=== PATIENT | female | born 1985 | race Caucasian/White ===

== ENCOUNTER 2016-11-16 15:44 | Emergency (ER) | payer OTHER ==
[~2016-11-16] VITALS: Ht 160 cm; Wt 111.6 kg
[2016-11-16 16:28] LABS: BASO # 0.1 x10^3/uL (0.0-0.2); BASO % 1 % (0-3); EOS % 3 % (0-3); HEMATOCRIT 38.9 % (36.0-47.0); HEMOGLOBIN 13.2 g/dL (12.0-15.5); LYMPH # 2.1 x10^3/uL (1.0-4.8); LYMPH % 18 % (24-48); MEAN CORPUSCULAR HEMOGLOBIN 29 pg (25-35); MEAN CORPUSCULAR HGB CONC 34 g/dL (31-37); MEAN CORPUSCULAR VOLUME 86 fL (79-100); MONO % 6 % (0-9); NEUT % 72 % (31-73); PLATELET COUNT 285 x10^3/uL (140-400); RED BLOOD COUNT 4.52 x10^6/uL (3.50-5.40); RED CELL DISTRIBUTION WIDTH 12.3 % (11.5-14.5); WHITE BLOOD COUNT 11.5 x10^3/uL (4.0-11.0)
[2016-11-16] MEDS ORDERED: ONDANSETRON PF 4 MG/2 ML VIAL. IV ONE (16:30)
[2016-11-16] MEDS ORDERED: IV NORMAL SALINE 1000ML BAG 1,000 ML IV ONE ×2 (16:30→19:00)
[2016-11-16 16:39] LABS: POTASSIUM ISTAT 3.3 mmol/L (3.5-5.0)
[2016-11-16 16:40] LABS: CALCIUM 9.3 mg/dL (8.5-10.1); CREATININE 0.9 mg/dL (0.6-1.0); GFR 72.1; POTASSIUM 3.3 mmol/L (3.5-5.1)
[2016-11-16] MEDS: HYDROmorphone 2 MG/ML VIAL IV PRN ×2 (16:43→20:51)
[2016-11-16 16:46] LABS: ALBUMIN 3.5 g/dL (3.4-5.0); ALBUMIN/GLOBULIN RATIO 0.8 (1.0-1.7); TOTAL BILIRUBIN 0.5 mg/dL (0.2-1.0)
[2016-11-16] MEDS ORDERED: CONTRAST GIVEN MC PRN (17:00)
[2016-11-16 17:07] LABS: BILIRUBIN,URINE SMALL (NEG); GLUCOSE,URINE NEGATIVE (NEG); NITRITE,URINE NEGATIVE (NEG); PROTEIN,URINE 30 mg/dL (NEG-TRACE); UROBILINOGEN,URINE 0.2 mg/dL (0.2 mg/dL)
[2016-11-16 17:16] LABS: BACTERIA,URINE MANY /HPF (0-FEW); RBC,URINE OCC /HPF (0-2); SQUAMOUS EPITHELIAL CELL,UR MANY /LPF
[2016-11-16] MEDS ORDERED: IOHEXOL 300 MG/ML 75 ML VIAL IV ONE (17:30)
[2016-11-16] MEDS ORDERED: IOHEXOL 240 MG/ML 50ML VIAL. PO ONE (17:30)
--- NOTE | 2016-11-16 17:42 | PHYS DOC ---
Past Medical History Past Medical History: Hypertension Past Surgical History: , Tonsillectomy, Other Additional Past Surgical Histo: GASTRIC BYPASS,D&C,ADENOIDS Alcohol Use: Occasionally Drug Use: None Adult General Chief Complaint Chief Complaint: ABDOMINAL PAIN HPI HPI 31-year-old female presenting to the emergency department after having a gastric bypass surgery less than a week ago. This was performed at [facility]. She reports epigastric abdominal pain that is sharp moderate intermittent and without alleviating factors. She denies vomiting but does have nausea. She denies fevers chills chest pain or shortness of breath. Review of systems is negative for rashes confusion lethargy cyanosis or diarrhea constipation blood in stools. All other review of systems is negative unless otherwise noted in history of present illness. ED course: 31-year-old female presenting to the emergency department with epigastric abdominal pain on postoperative day 4 of a gastric bypass surgery performed at another facility. Vital signs show the patient to be afebrile with a normal heart rate. Otherwise mild chronic hypertension present. Physical examination shows incisions to be clean dry and intact. Laparoscopic incisions present. Abdomen is soft and minimally tender in the epigastrium without rebound tenderness or guarding. Otherwise unremarkable examination. Blood work sent along with CT the abdomen pelvis with IV and oral contrast. I discussed the case with surgeon on-call at [facility] Dr. hassan. I also discussed the case with Dr. Guerrier our surgeon on-call who recommended transfer. The patient was in transferred to [facility] for treatment of acute pancreatitis after bariatric surgery. Review of Systems Review of Systems SEE ABOVE. Current Medications Current Medications Current Medications Medications (Trade) Dose Ordered Sig/Pa Start Time Stop Time Status Last Admin Dose Admin Enoxaparin Sodium (Lovenox 40mg Syringe) 40 mg Q12H 11/17/16 09:00 11/17/16 09:00 DC Famotidine (Pepcid) 20 mg DAILY 11/17/16 09:00 11/17/16 09:00 DC Fentanyl Citrate (Fentanyl 2ml Vial) 50 mcg PRN Q2HR PRN 11/16/16 19:30 11/16/16 22:11 DC Hydromorphone HCl (Dilaudid) 0.5 mg PRN Q4HRS PRN 11/16/16 19:30 11/16/16 22:11 DC Info (Do NOT chart on this entry -- for MONITORING) 1 each PRN DAILY PRN 11/16/16 17:00 11/16/16 22:11 DC Iohexol (Omnipaque 240 Mg/ml) 50 ml 1X ONCE 11/16/16 17:30 11/16/16 17:31 DC 11/16/16 17:30 50 ML Iohexol (Omnipaque 300 Mg/ml) 75 ml 1X ONCE 11/16/16 17:30 11/16/16 17:31 DC 11/16/16 18:01 75 ML Ondansetron HCl (Zofran) 4 mg PRN Q6HRS PRN 11/16/16 19:30 11/16/16 22:11 DC Oxycodone HCl (Roxicodone) 5 mg PRN QID PRN 11/16/16 19:30 11/16/16 22:11 DC Potassium Chloride (Klor-Con) 20 meq 1X ONCE 11/16/16 19:00 11/16/16 19:01 DC 11/16/16 19:03 20 MEQ Prochlorperazine Edisylate (Compazine) 10 mg PRN Q6HRS PRN 11/16/16 19:30 11/16/16 22:11 DC Sodium Chloride 1,000 ml @ 100 mls/hr Q10H 11/16/16 20:00 11/16/16 22:11 DC Allergies Allergies Allergies Coded Allergies Type Severity Reaction Last Updated Verified metaxalone Allergy Intermediate rash 11/16/16 Yes meperidine Allergy Mild VOMIT 11/16/16 Yes Physical Exam Physical Exam SEE ABOVE Constitutional: Well developed, well nourished, no acute distress, non-toxic appearance. [] HENT: Normocephalic, atraumatic, bilateral external ears normal, oropharynx moist, no oral exudates, nose normal. [] Eyes: PERRLA, EOMI, conjunctiva normal, no discharge. [] Neck: Normal range of motion, no tenderness, supple, no stridor. [] Cardiovascular:Heart rate regular rhythm, no murmur [] Lungs & Thorax: Bilateral breath sounds clear to auscultation [] Abdomen: See above Skin: Warm, dry, no erythema, no rash. [] Back: No tenderness, no CVA tenderness. [] Extremities: No tenderness, no cyanosis, no clubbing, ROM intact, no edema. [] Neurologic: Alert and oriented X 3, normal motor function, normal sensory function, no focal deficits noted. [] Psychologic: Affect normal, judgement normal, mood normal. [] Current Patient Data Vital Signs Vital Signs Date Time Temp Pulse Resp B/P (MAP) Pulse Ox O2 Delivery O2 Flow Rate FiO2 11/16/16 21:39 66 23 175/92 (119) 96 Room Air 11/16/16 16:01 98.4 98.4 Lab Values Laboratory Tests Test 11/16/16 16:01 11/16/16 16:19 11/16/16 16:26 11/16/16 16:47 POC Urine HCG, Qualitative Hcg negative (Negative) White Blood Count 11.5 x10^3/uL (4.0-11.0) H Red Blood Count 4.52 x10^6/uL (3.50-5.40) Hemoglobin 13.2 g/dL (12.0-15.5) Hematocrit 38.9 % (36.0-47.0) Mean Corpuscular Volume 86 fL (79-100) Mean Corpuscular Hemoglobin 29 pg (25-35) Mean Corpuscular Hemoglobin Concent 34 g/dL (31-37) Red Cell Distribution Width 12.3 % (11.5-14.5) Platelet Count 285 x10^3/uL (140-400) Neutrophils (%) (Auto) 72 % (31-73) Lymphocytes (%) (Auto) 18 % (24-48) L Monocytes (%) (Auto) 6 % (0-9) Eosinophils (%) (Auto) 3 % (0-3) Basophils (%) (Auto) 1 % (0-3) Neutrophils # (Auto) 8.3 x10^3uL (1.8-7.7) H Lymphocytes # (Auto) 2.1 x10^3/uL (1.0-4.8) Monocytes # (Auto) 0.6 x10^3/uL (0.0-1.1) Eosinophils # (Auto) 0.4 x10^3/uL (0.0-0.7) Basophils # (Auto) 0.1 x10^3/uL (0.0-0.2) Sodium Level 139 mmol/L (136-145) Potassium Level 3.3 mmol/L (3.5-5.1) L Chloride Level 100 mmol/L (98-107) Carbon Dioxide Level 22 mmol/L (21-32) Anion Gap 17 (6-14) H 23 mmol/L (6-14) H Blood Urea Nitrogen 16 mg/dL (7-20) Creatinine 0.9 mg/dL (0.6-1.0) Estimated GFR (Cockcroft-Gault) 72.1 BUN/Creatinine Ratio 18 (6-20) Glucose Level 83 mg/dL (70-99) 81 mg/dL (70-99) Calcium Level 9.3 mg/dL (8.5-10.1) Total Bilirubin 0.5 mg/dL (0.2-1.0) Aspartate Amino Transferase (AST) 17 U/L (15-37) Alanine Aminotransferase (ALT) 17 U/L (14-59) Alkaline Phosphatase 70 U/L (46-116) Total Protein 8.0 g/dL (6.4-8.2) Albumin 3.5 g/dL (3.4-5.0) Albumin/Globulin Ratio 0.8 (1.0-1.7) L Lipase 681 U/L (73-393) H POC Hemoglobin 13.9 g/dL (12-15) POC Hematocrit 41 % (36-40) H POC Sodium 140 mmol/L (135-145) POC Potassium 3.3 mmol/L (3.5-5.0) L POC Chloride 102 mmol/L (98-110) POC Total CO2 19 mmol/L (23-32) L POC Blood Urea Nitrogen 15 mg/dL (8-26) POC Creatinine 0.7 mg/dL (0.5-1.4) POC Ionized Calcium (Edie) 1.08 mmol/L (1.13-1.32) L Urine Collection Type Unknown Urine Color Yellow Urine Clarity Clear Urine pH 6.0 Urine Specific [place] >=1.030 Urine Protein 30 mg/dL (NEG-TRACE) Urine Glucose (UA) Negative mg/dL (NEG) Urine Ketones (Stick) >=80 mg/dL (NEG) Urine Blood Large (NEG) Urine Nitrite Negative (NEG) Urine Bilirubin Small (NEG) Urine Urobilinogen Dipstick 0.2 mg/dL (0.2 mg/dL) Urine Leukocyte Esterase Small (NEG) Urine RBC Occ /HPF (0-2) Urine WBC 1-4 /HPF (0-4) Urine Squamous Epithelial Cells Many /LPF Urine Bacteria Many /HPF (0-FEW) Urine Mucus Marked /LPF Laboratory Tests 11/16/16 16:19 Laboratory Tests 11/16/16 16:19 11/16/16 16:26 EKG EKG [] Radiology/Procedures Radiology/Procedures [] Course & Med Decision Making Course & Med Decision Making Pertinent Labs and Imaging studies reviewed. (See chart for details) [] Dragon Disclaimer Dragon Disclaimer This electronic medical record was generated, in whole or in part, using a voice recognition dictation system. Departure Departure Impression: Primary Impression: Epigastric abdominal pain Additional Impression: Pancreatitis Disposition: ADMITTED INPATIENT Condition: STABLE Referrals: REHAN ZARAGOZA MD Patient Instructions: Abdominal Pain (Nonspecific), Bariatric Surgery, Care After, Diet - Following Bariatric Surgery Additional Instructions: Thank you for allowing us to participate in your care today. Followup with your primary care physician in 3 days if your symptoms do not improve. Call your Primary Doctor tomorrow and inform them of your visit today. If you do not have a primary care provider you can ask for a list of our primary care providers. Return to the emergency department you have any new or concerning findings. This should be evaluated by the primary care physician and any necessary consulting services for continued management within a few days after discharge. Return to emergency room if you have any new or concerning symptoms including but not limited to fever, chills, nausea, vomiting, intractable pain, any new rashes, chest pain, shortness of air, uncontrolled bleeding, difficulty breathing, and/or vision loss. You may have been prescribed medication that can change in your level of thinking and ability to operate machinery. These medications include hydrocodone and Ativan. Also, Benadryl has been known to do this as well. Be sure to check with your pharmacist and ask if the medications you've prescribed can affect your level of consciousness. I recommend not operating heavy machinery or driving while on medication such as these. Problem Qualifiers ARIAN BIRMINGHAM MD Nov 16, 2016 17:42
--- NOTE | 2016-11-16 18:33 | RAD ---
CT study of the abdomen and pelvis with contrast Clinical indications: Epigastric pain. Status post gastric bypass surgery 4 days ago. TECHNIQUE: After IV infusion of 75 mL of Omnipaque 300, helical CT scanning of the abdomen and pelvis was performed. GI contrast was administered per mouth. PQRS compliance Statement One or more of the following individualized dose reduction techniques were utilized for this study: 1. Automated exposure control 2. Adjustment of the mA and/or kV according to patient size 3. Use of iterative reconstruction technique COMPARISON: None available. FINDINGS: The liver and spleen and gallbladder and pancreas are normal. No extra hepatic biliary ductal dilatation is seen. No adrenal mass is evident. Both kidneys are normal without hydronephrosis or hydroureter. Urinary bladder is not abnormally distended. No focal aneurysmal dilatation of the abdominal aorta is seen. No enlarged abdominal or pelvic lymphadenopathy is seen. No uterine mass or fibroid is seen. No dominant ovarian cyst or mass is evident. Midtransverse colon spasm is seen. No obstructive bowel pattern is evident. Contrast is seen all the way to the terminal ileum. The terminal ileum is normal. The appendix is normal. No free fluid is evident. Postoperative changes of the anterior abdominal wall on left side is seen with edema. Postoperative changes related to partitioned stomach and gastric bypass is evident. No abnormal distention of the stomach is seen. Minimal amount of free intraperitoneal air is seen from the recent surgery a few days ago. No lung base consolidation is evident on the right side. Mild mild postoperative atelectasis of the left lung base is seen. Minimal pleural effusion is seen on this side. Grade 1 anterolisthesis of L5-S1 is seen secondary to bilateral spondylolysis of L5. No osteolytic process is seen. IMPRESSION: Postoperative changes with edema of the anterior abdominal wall on the left side. No soft tissue abscess is seen within the anterior abdominal wall. No intraperitoneal soft tissue abscess or free fluid is seen. A tiny amount of postoperative free air is seen. No gastric obstruction or bowel obstruction is evident. GI contrast is seen all the way to the terminal ileum. Mild postoperative left lung base atelectasis. Minimal postoperative left-sided pleural effusion. Grade 1 anterolisthesis of L5-S1 secondary to bilateral spondylolysis of L5. Electronically signed by: Johann Sweeney MD (11/16/2016 6:30 PM) [facility]
[2016-11-16] MEDS ORDERED: POTASSIUM CHLORIDE 20 MEQ TABLET.ER. PO ONE (19:00)
[2016-11-16] MEDS ORDERED: PROCHLORPERAZINE 10 MG/2 ML VIAL. IV PRN (19:30)
[2016-11-16] MEDS ORDERED: oxyCODONE IR 5 MG TABLET PO PRN (19:30)
[2016-11-16] MEDS ORDERED: ONDANSETRON PF 4 MG/2 ML VIAL. IV PRN (19:30)
[2016-11-16] MEDS ORDERED: fentaNYL PF VIAL 100 MCG/2 ML VIAL IV PRN (19:30)
[2016-11-16] MEDS ORDERED: HYDROmorphone 2 MG/ML VIAL IV PRN (19:30)
--- NOTE | 2016-11-16 19:30 | PDOC1 ---
History and Physical Date of Admission Date of Admission DATE: 11/16/16 TIME: 19:23 Identification/Chief Complaint Chief Complaint abd pain Problems: Source Source: Caregiver, Chart review, Patient History of Present Illness History of Present Illness 31 y.o morbidly obese female who is 4 days out from having gastric bypass by Dr. Arteaga at [facility], coems in to us (she lives at [facility]) for abd pain, mostly LLQ area. Lipase 680s, CT abd neg except for post opc hanges, Urine is clean except for signs of dehydration. She has lost 14 lbs simce sx, expected to lose 120 lbs more, She is on liquid diet at home, with goals of pureed diet this Friday. ER did call bariatric sx at [facility], Dr. Paul who was covering for the surgeon said ok to keep here, treat for pancreatitis, Was told it is not unusual to have abd pain post op, admitted for pain control and treat "pancreatits". On 4 meds at home, lovenox SQ qD, PPI, oxycodone and zofran Past Medical History Cardiovascular: No pertinent hx Pulmonary: No pertinent hx GI: Other (gastric bypass) Heme/Onc: No pertinent hx Hepatobiliary: No pertinent hx Psych: No pertinent hx Rheumatologic: No pertinent hx Infectious disease: No pertinent hx ENT: No pertinent hx Renal/: No pertinent hx Endocrine: No pertinent hx Dermatology: No pertinent hx Past Surgical History Past Surgical History: Other (gastric bypass 4 days ago) Family History Family History: Hypertension Social History Smoke: No ALCOHOL: none Drugs: None Current Problem List Problem List Problems Medical Problems: (1) Epigastric abdominal pain Status: Acute Problems: Current Medications Current Medications Current Medications Sodium Chloride 1,000 ml @ 1,000 mls/hr 1X ONCE IV Last administered on 16:35; Start 11/16/16 at 16:30; Stop 11/16/16 at 17:29; Status DC Hydromorphone HCl (Dilaudid) 0.5 mg PRN Q30MIN PRN IV SEVERE PAIN Last administered on 11/16/16 16:43; Start 11/16/16 at 16:15; Stop 11/16/16 at 23:00 Ondansetron HCl (Zofran) 4 mg 1X ONCE IV Last administered on 11/16/16 16:39 ; Start 11/16/16 at 16:30; Stop 11/16/16 at 16:31; Status DC Iohexol (Omnipaque 300 Mg/ml) 75 ml 1X ONCE IV Last administered on 11/16/16 18:01; Start 11/16/16 at 17:30; Stop 11/16/16 at 17:31; Status DC Iohexol (Omnipaque 240 Mg/ml) 50 ml 1X ONCE PO Last administered on 11/16/16 17:30; Start 11/16/16 at 17:30; Stop 11/16/16 at 17:31; Status DC Info (Do NOT chart on this entry -- for MONITORING) 1 each PRN DAILY PRN MC SEE COMMENTS; Start 11/16/16 at 17:00; Stop 11/18/16 at 16:59 Sodium Chloride 1,000 ml @ 100 mls/hr 1X ONCE IV Last administered on 18:52; Start 11/16/16 at 19:00; Stop 11/17/16 at 04:59 Potassium Chloride (Klor-Con) 20 meq 1X ONCE PO Last administered on 19:03; Start 11/16/16 at 19:00; Stop 11/16/16 at 19:01; Status DC Allergies Allergies: Coded Allergies: metaxalone (Verified Allergy, Intermediate, rash, 11/16/16) meperidine (Verified Allergy, Mild, VOMIT, 11/16/16) ROS Review of System none except for hPI, all 14 pt systems reviewed Physical Exam General: Alert, Oriented X3, Cooperative, No acute distress HEENT: Atraumatic, PERRLA Lungs: Clear to auscultation, Normal air movement Heart: S1S2, RRR, no thrills, no rubs, no gallops, no murmurs Cardiovascular: S1, S2 Breasts: Normal, Rt breast nml w/o mass, Lt breast nml w/o mass, Nipples normal Abdomen: Soft, Other (tenderness mostly LLQ area, 6 lap wounds, with surgi tape ) PELVIC: Nml ext genitalia Extremities: No clubbing, No cyanosis, No edema, Normal pulses, No tenderness/ swelling Skin: No rashes, No breakdown, No significant lesion Neuro: Normal gait, Normal speech, Strength at 5/5 X4 ext, Normal tone, Sensation intact, Cranial nerves 3-12 NL, Reflexes 2+ Psych/Mental Status: Mental status NL, Mood NL Vitals Vitals Vital Signs Date Time Temp Pulse Resp B/P (MAP) Pulse Ox O2 Delivery O2 Flow Rate FiO2 11/16/16 18:06 81 23 124/87 (99) 98 Room Air 11/16/16 16:01 98.4 98.4 Labs Labs Laboratory Tests Test 11/16/16 16:01 11/16/16 16:19 11/16/16 16:26 11/16/16 16:47 Bedside Urine HCG, Qualitative Hcg negative (Negative) White Blood Count 11.5 x10^3/uL (4.0-11.0) Red Blood Count 4.52 x10^6/uL (3.50-5.40) Hemoglobin 13.2 g/dL (12.0-15.5) Hematocrit 38.9 % (36.0-47.0) Mean Corpuscular Volume 86 fL (79-100) Mean Corpuscular Hemoglobin 29 pg (25-35) Mean Corpuscular Hemoglobin Concent 34 g/dL (31-37) Red Cell Distribution Width 12.3 % (11.5-14.5) Platelet Count 285 x10^3/uL (140-400) Neutrophils (%) (Auto) 72 % (31-73) Lymphocytes (%) (Auto) 18 % (24-48) Monocytes (%) (Auto) 6 % (0-9) Eosinophils (%) (Auto) 3 % (0-3) Basophils (%) (Auto) 1 % (0-3) Neutrophils # (Auto) 8.3 x10^3uL (1.8-7.7) Lymphocytes # (Auto) 2.1 x10^3/uL (1.0-4.8) Monocytes # (Auto) 0.6 x10^3/uL (0.0-1.1) Eosinophils # (Auto) 0.4 x10^3/uL (0.0-0.7) Basophils # (Auto) 0.1 x10^3/uL (0.0-0.2) Sodium Level 139 mmol/L (136-145) Potassium Level 3.3 mmol/L (3.5-5.1) Chloride Level 100 mmol/L (98-107) Carbon Dioxide Level 22 mmol/L (21-32) Anion Gap 17 (6-14) 23 mmol/L (6-14) Blood Urea Nitrogen 16 mg/dL (7-20) Creatinine 0.9 mg/dL (0.6-1.0) Estimated GFR (Cockcroft-Gault) 72.1 BUN/Creatinine Ratio 18 (6-20) Glucose Level 83 mg/dL (70-99) 81 mg/dL (70-99) Calcium Level 9.3 mg/dL (8.5-10.1) Total Bilirubin 0.5 mg/dL (0.2-1.0) Aspartate Amino Transf (AST/SGOT) 17 U/L (15-37) Alanine Aminotransferase (ALT/SGPT) 17 U/L (14-59) Alkaline Phosphatase 70 U/L (46-116) Total Protein 8.0 g/dL (6.4-8.2) Albumin 3.5 g/dL (3.4-5.0) Albumin/Globulin Ratio 0.8 (1.0-1.7) Lipase 681 U/L (73-393) Bedside Hemoglobin 13.9 g/dL (12-15) Bedside Hematocrit 41 % (36-40) Bedside Sodium 140 mmol/L (135-145) Bedside Potassium 3.3 mmol/L (3.5-5.0) Bedside Chloride 102 mmol/L (98-110) Bedside Total CO2 19 mmol/L (23-32) Bedside Blood Urea Nitrogen 15 mg/dL (8-26) Bedside Creatinine 0.7 mg/dL (0.5-1.4) Bedside Ionized Calcium (Edie) 1.08 mmol/L (1.13-1.32) Urine Collection Type Unknown Urine Color Yellow Urine Clarity Clear Urine pH 6.0 Urine Specific [place] >=1.030 Urine Protein 30 mg/dL (NEG-TRACE) Urine Glucose (UA) Negative mg/dL (NEG) Urine Ketones (Stick) >=80 mg/dL (NEG) Urine Blood Large (NEG) Urine Nitrite Negative (NEG) Urine Bilirubin Small (NEG) Urine Urobilinogen Dipstick 0.2 mg/dL (0.2 mg/dL) Urine Leukocyte Esterase Small (NEG) Urine RBC Occ /HPF (0-2) Urine WBC 1-4 /HPF (0-4) Urine Squamous Epithelial Cells Many /LPF Urine Bacteria Many /HPF (0-FEW) Urine Mucus Marked /LPF Laboratory Tests Test 11/16/16 16:01 11/16/16 16:19 11/16/16 16:26 11/16/16 16:47 Bedside Urine HCG, Qualitative Hcg negative (Negative) White Blood Count 11.5 x10^3/uL (4.0-11.0) Red Blood Count 4.52 x10^6/uL (3.50-5.40) Hemoglobin 13.2 g/dL (12.0-15.5) Hematocrit 38.9 % (36.0-47.0) Mean Corpuscular Volume 86 fL (79-100) Mean Corpuscular Hemoglobin 29 pg (25-35) Mean Corpuscular Hemoglobin Concent 34 g/dL (31-37) Red Cell Distribution Width 12.3 % (11.5-14.5) Platelet Count 285 x10^3/uL (140-400) Neutrophils (%) (Auto) 72 % (31-73) Lymphocytes (%) (Auto) 18 % (24-48) Monocytes (%) (Auto) 6 % (0-9) Eosinophils (%) (Auto) 3 % (0-3) Basophils (%) (Auto) 1 % (0-3) Neutrophils # (Auto) 8.3 x10^3uL (1.8-7.7) Lymphocytes # (Auto) 2.1 x10^3/uL (1.0-4.8) Monocytes # (Auto) 0.6 x10^3/uL (0.0-1.1) Eosinophils # (Auto) 0.4 x10^3/uL (0.0-0.7) Basophils # (Auto) 0.1 x10^3/uL (0.0-0.2) Sodium Level 139 mmol/L (136-145) Potassium Level 3.3 mmol/L (3.5-5.1) Chloride Level 100 mmol/L (98-107) Carbon Dioxide Level 22 mmol/L (21-32) Anion Gap 17 (6-14) 23 mmol/L (6-14) Blood Urea Nitrogen 16 mg/dL (7-20) Creatinine 0.9 mg/dL (0.6-1.0) Estimated GFR (Cockcroft-Gault) 72.1 BUN/Creatinine Ratio 18 (6-20) Glucose Level 83 mg/dL (70-99) 81 mg/dL (70-99) Calcium Level 9.3 mg/dL (8.5-10.1) Total Bilirubin 0.5 mg/dL (0.2-1.0) Aspartate Amino Transf (AST/SGOT) 17 U/L (15-37) Alanine Aminotransferase (ALT/SGPT) 17 U/L (14-59) Alkaline Phosphatase 70 U/L (46-116) Total Protein 8.0 g/dL (6.4-8.2) Albumin 3.5 g/dL (3.4-5.0) Albumin/Globulin Ratio 0.8 (1.0-1.7) Lipase 681 U/L (73-393) Bedside Hemoglobin 13.9 g/dL (12-15) Bedside Hematocrit 41 % (36-40) Bedside Sodium 140 mmol/L (135-145) Bedside Potassium 3.3 mmol/L (3.5-5.0) Bedside Chloride 102 mmol/L (98-110) Bedside Total CO2 19 mmol/L (23-32) Bedside Blood Urea Nitrogen 15 mg/dL (8-26) Bedside Creatinine 0.7 mg/dL (0.5-1.4) Bedside Ionized Calcium (Edie) 1.08 mmol/L (1.13-1.32) Urine Collection Type Unknown Urine Color Yellow Urine Clarity Clear Urine pH 6.0 Urine Specific [place] >=1.030 Urine Protein 30 mg/dL (NEG-TRACE) Urine Glucose (UA) Negative mg/dL (NEG) Urine Ketones (Stick) >=80 mg/dL (NEG) Urine Blood Large (NEG) Urine Nitrite Negative (NEG) Urine Bilirubin Small (NEG) Urine Urobilinogen Dipstick 0.2 mg/dL (0.2 mg/dL) Urine Leukocyte Esterase Small (NEG) Urine RBC Occ /HPF (0-2) Urine WBC 1-4 /HPF (0-4) Urine Squamous Epithelial Cells Many /LPF Urine Bacteria Many /HPF (0-FEW) Urine Mucus Marked /LPF VTE Prophylaxis Ordered VTE Prophylaxis Devices: Yes VTE Pharmacological Prophylaxi: Yes Assessment/Plan Assessment/Plan 1. LLQ pain, 4 days post gastric bypass 2. ELevated lipase, pancreatitis, possible? (though her abd pain is not epigastric but rather LLQ, CT neg, no white ct if this were diverticulitis) 3. MOrbid Obesity PLAn: ADmit NPO IVF Recheck lipase control pain, IV fentanyl, IV dialudid PO oxycodone Resume home PPI and zofran and oxy ADvance to liquid diet once better She is supposed to be on pureed diet friday as per bariatric surgeons instructions [facility] [address] and pt Seen at ER 13 SHIRA HERNANDEZ MD Nov 16, 2016 19:30
--- NOTE | 2016-11-16 19:34 | PDOC3 ---
Discharge Summary Visit Information Date of Admission: Nov 16, 2016 Date of Discharge: Nov 16, 2016 Admitting Diagnosis Comment: 1. LLQ pain, 4 days post gastric bypass 2. ELevated lipase, pancreatitis, possible? (though her abd pain is not epigastric but rather LLQ, CT neg, no white ct if this were diverticulitis) 3. MOrbid Obesity transfer to [facility] Final Diagnosis Problems Medical Problems: (1) Epigastric abdominal pain Status: Acute Brief Hospital Course Allergies Allergies Coded Allergies Type Severity Reaction Last Updated Verified metaxalone Allergy Intermediate rash 11/16/16 Yes meperidine Allergy Mild VOMIT 11/16/16 Yes Vital Signs Vital Signs Date Time Temp Pulse Resp B/P (MAP) Pulse Ox O2 Delivery O2 Flow Rate FiO2 11/16/16 18:06 81 23 124/87 (99) 98 Room Air 11/16/16 16:01 98.4 98.4 Lab Results Laboratory Tests Test 11/16/16 16:01 11/16/16 16:19 11/16/16 16:26 11/16/16 16:47 Bedside Urine HCG, Qualitative Hcg negative (Negative) White Blood Count 11.5 x10^3/uL (4.0-11.0) Red Blood Count 4.52 x10^6/uL (3.50-5.40) Hemoglobin 13.2 g/dL (12.0-15.5) Hematocrit 38.9 % (36.0-47.0) Mean Corpuscular Volume 86 fL (79-100) Mean Corpuscular Hemoglobin 29 pg (25-35) Mean Corpuscular Hemoglobin Concent 34 g/dL (31-37) Red Cell Distribution Width 12.3 % (11.5-14.5) Platelet Count 285 x10^3/uL (140-400) Neutrophils (%) (Auto) 72 % (31-73) Lymphocytes (%) (Auto) 18 % (24-48) Monocytes (%) (Auto) 6 % (0-9) Eosinophils (%) (Auto) 3 % (0-3) Basophils (%) (Auto) 1 % (0-3) Neutrophils # (Auto) 8.3 x10^3uL (1.8-7.7) Lymphocytes # (Auto) 2.1 x10^3/uL (1.0-4.8) Monocytes # (Auto) 0.6 x10^3/uL (0.0-1.1) Eosinophils # (Auto) 0.4 x10^3/uL (0.0-0.7) Basophils # (Auto) 0.1 x10^3/uL (0.0-0.2) Sodium Level 139 mmol/L (136-145) Potassium Level 3.3 mmol/L (3.5-5.1) Chloride Level 100 mmol/L (98-107) Carbon Dioxide Level 22 mmol/L (21-32) Anion Gap 17 (6-14) 23 mmol/L (6-14) Blood Urea Nitrogen 16 mg/dL (7-20) Creatinine 0.9 mg/dL (0.6-1.0) Estimated GFR (Cockcroft-Gault) 72.1 BUN/Creatinine Ratio 18 (6-20) Glucose Level 83 mg/dL (70-99) 81 mg/dL (70-99) Calcium Level 9.3 mg/dL (8.5-10.1) Total Bilirubin 0.5 mg/dL (0.2-1.0) Aspartate Amino Transf (AST/SGOT) 17 U/L (15-37) Alanine Aminotransferase (ALT/SGPT) 17 U/L (14-59) Alkaline Phosphatase 70 U/L (46-116) Total Protein 8.0 g/dL (6.4-8.2) Albumin 3.5 g/dL (3.4-5.0) Albumin/Globulin Ratio 0.8 (1.0-1.7) Lipase 681 U/L (73-393) Bedside Hemoglobin 13.9 g/dL (12-15) Bedside Hematocrit 41 % (36-40) Bedside Sodium 140 mmol/L (135-145) Bedside Potassium 3.3 mmol/L (3.5-5.0) Bedside Chloride 102 mmol/L (98-110) Bedside Total CO2 19 mmol/L (23-32) Bedside Blood Urea Nitrogen 15 mg/dL (8-26) Bedside Creatinine 0.7 mg/dL (0.5-1.4) Bedside Ionized Calcium (Edie) 1.08 mmol/L (1.13-1.32) Urine Collection Type Unknown Urine Color Yellow Urine Clarity Clear Urine pH 6.0 Urine Specific [place] >=1.030 Urine Protein 30 mg/dL (NEG-TRACE) Urine Glucose (UA) Negative mg/dL (NEG) Urine Ketones (Stick) >=80 mg/dL (NEG) Urine Blood Large (NEG) Urine Nitrite Negative (NEG) Urine Bilirubin Small (NEG) Urine Urobilinogen Dipstick 0.2 mg/dL (0.2 mg/dL) Urine Leukocyte Esterase Small (NEG) Urine RBC Occ /HPF (0-2) Urine WBC 1-4 /HPF (0-4) Urine Squamous Epithelial Cells Many /LPF Urine Bacteria Many /HPF (0-FEW) Urine Mucus Marked /LPF Laboratory Tests Test 11/16/16 16:01 11/16/16 16:19 11/16/16 16:26 11/16/16 16:47 Bedside Urine HCG, Qualitative Hcg negative (Negative) White Blood Count 11.5 x10^3/uL (4.0-11.0) Red Blood Count 4.52 x10^6/uL (3.50-5.40) Hemoglobin 13.2 g/dL (12.0-15.5) Hematocrit 38.9 % (36.0-47.0) Mean Corpuscular Volume 86 fL (79-100) Mean Corpuscular Hemoglobin 29 pg (25-35) Mean Corpuscular Hemoglobin Concent 34 g/dL (31-37) Red Cell Distribution Width 12.3 % (11.5-14.5) Platelet Count 285 x10^3/uL (140-400) Neutrophils (%) (Auto) 72 % (31-73) Lymphocytes (%) (Auto) 18 % (24-48) Monocytes (%) (Auto) 6 % (0-9) Eosinophils (%) (Auto) 3 % (0-3) Basophils (%) (Auto) 1 % (0-3) Neutrophils # (Auto) 8.3 x10^3uL (1.8-7.7) Lymphocytes # (Auto) 2.1 x10^3/uL (1.0-4.8) Monocytes # (Auto) 0.6 x10^3/uL (0.0-1.1) Eosinophils # (Auto) 0.4 x10^3/uL (0.0-0.7) Basophils # (Auto) 0.1 x10^3/uL (0.0-0.2) Sodium Level 139 mmol/L (136-145) Potassium Level 3.3 mmol/L (3.5-5.1) Chloride Level 100 mmol/L (98-107) Carbon Dioxide Level 22 mmol/L (21-32) Anion Gap 17 (6-14) 23 mmol/L (6-14) Blood Urea Nitrogen 16 mg/dL (7-20) Creatinine 0.9 mg/dL (0.6-1.0) Estimated GFR (Cockcroft-Gault) 72.1 BUN/Creatinine Ratio 18 (6-20) Glucose Level 83 mg/dL (70-99) 81 mg/dL (70-99) Calcium Level 9.3 mg/dL (8.5-10.1) Total Bilirubin 0.5 mg/dL (0.2-1.0) Aspartate Amino Transf (AST/SGOT) 17 U/L (15-37) Alanine Aminotransferase (ALT/SGPT) 17 U/L (14-59) Alkaline Phosphatase 70 U/L (46-116) Total Protein 8.0 g/dL (6.4-8.2) Albumin 3.5 g/dL (3.4-5.0) Albumin/Globulin Ratio 0.8 (1.0-1.7) Lipase 681 U/L (73-393) Bedside Hemoglobin 13.9 g/dL (12-15) Bedside Hematocrit 41 % (36-40) Bedside Sodium 140 mmol/L (135-145) Bedside Potassium 3.3 mmol/L (3.5-5.0) Bedside Chloride 102 mmol/L (98-110) Bedside Total CO2 19 mmol/L (23-32) Bedside Blood Urea Nitrogen 15 mg/dL (8-26) Bedside Creatinine 0.7 mg/dL (0.5-1.4) Bedside Ionized Calcium (Edie) 1.08 mmol/L (1.13-1.32) Urine Collection Type Unknown Urine Color Yellow Urine Clarity Clear Urine pH 6.0 Urine Specific [place] >=1.030 Urine Protein 30 mg/dL (NEG-TRACE) Urine Glucose (UA) Negative mg/dL (NEG) Urine Ketones (Stick) >=80 mg/dL (NEG) Urine Blood Large (NEG) Urine Nitrite Negative (NEG) Urine Bilirubin Small (NEG) Urine Urobilinogen Dipstick 0.2 mg/dL (0.2 mg/dL) Urine Leukocyte Esterase Small (NEG) Urine RBC Occ /HPF (0-2) Urine WBC 1-4 /HPF (0-4) Urine Squamous Epithelial Cells Many /LPF Urine Bacteria Many /HPF (0-FEW) Urine Mucus Marked /LPF Brief Hospital Course 31 y.o morbidly obese female who is 4 days out from having gastric bypass by Dr. Arteaga at [facility], coems in to us (she lives at [facility]) for abd pain, mostly LLQ area. Lipase 680s, CT abd neg except for post opc hanges, Urine is clean except for signs of dehydration. She has lost 14 lbs simce sx, expected to lose 120 lbs more, She is on liquid diet at home, with goals of pureed diet this Friday. ER did call bariatric sx at [facility], Dr. Paul who was covering for the surgeon said ok to keep here, treat for pancreatitis, Was told it is not unusual to have abd pain post op, admitted for pain control and treat "pancreatits". On 4 meds at home, lovenox SQ qD, PPI, oxycodone and zofranMs. Avni is a 31 old [sex] who presented with [ ] COURSE: GS wanted t transfer to [facility] - pt was not admitted eventually- but seen and evaulated by me already Discharge Information Condition at Discharge: Comment (transfer) Disposition/Orders: Other (transfer) SHIRA HERNANDEZ MD Nov 16, 2016 19:34
[2016-11-16] MEDS ORDERED: IV NORMAL SALINE 1000ML BAG 1,000 ML IV SCH (20:00)
[2016-11-16 21:39] VITALS: BP 175/92
[2016-11-17] MEDS ORDERED: ENOXAPARIN 40 MG/0.4 ML SYRINGE. SQ SCH (09:00)
[2016-11-17] MEDS ORDERED: FAMOTIDINE 20 MG TABLET. PO SCH (09:00)
== END 2016-11-16 22:08 | disposition short-term general hospital (02) ==
LOC: ER 15:44
DX: K85.90 Acute pancreatitis without necrosis or infection, unspecified (principal); I10 Essential (primary) hypertension; Z98.84 Bariatric surgery status; Z98.890 Other specified postprocedural states; Z88.8 Allergy status to other drugs, medicaments and biological substances
CPT/HCPCS: 36415; 74177; 80047; 80053; 81001; 81025; 83690; 85027; 87086; 96361; 96374; 96375; 96376; 99285; J1170; J2405; J7030; Q9966; Q9967